=== PATIENT | male | born 1935 | race Caucasian/White ===

== ENCOUNTER 2016-05-12 14:40 | Outpatient (RCR) | payer MEDICARE, OTHER ==
[2016-05-12 14:54] LABS: BASOPHILS % (AUTO) 0 % (0-2); EOSINOPHILS # (AUTO) 0.1 10^3uL; EOSINOPHILS % (AUTO) 1 % (0-4); LYMPHOCYTES # (AUTO) 1.2 X10^3; MEAN CORPUSCULAR HEMOGLOBIN 25.3 PG (26.0-34.0); MEAN CORPUSCULAR HGB CONC 30.4 g/dL (31.0-37.0); MEAN CORPUSCULAR VOLUME 83 FL (80-100); MEAN PLATELET VOLUME 10.1 FL (6.0-9.5); MONOCYTES # (AUTO) 0.9 X10^3; MONOCYTES % (AUTO) 12 % (3-11); NEUTROPHILS # (AUTO) 4.9 X10^3; NEUTROPHILS % (AUTO) 69 % (51-67); PLATELET COUNT 223 10^3uL (150-450); WHITE BLOOD COUNT 7.04 10^3uL (4.0-11.0)
[2016-05-19 12:15] LABS: MEAN CORPUSCULAR VOLUME 83 FL (80-100); MEAN PLATELET VOLUME 10.2 FL (6.0-9.5); PLATELET COUNT 232 10^3uL (150-450); WHITE BLOOD COUNT 6.28 10^3uL (4.0-11.0)
[2016-05-19 12:22] LABS: MEAN CORPUSCULAR HEMOGLOBIN 25.6 PG (26.0-34.0)
[2016-05-19 12:23] LABS: ANISOCYTOSIS SLIGHT; BAND NEUTROPHILS % 1 % (0-6); EOSINOPHILS % 0 % (0-4); LYMPHOCYTES # 0.9 #; MONOCYTES # 1.3 #; MONOCYTES % 21 % (3-11); RBC MORPH SEE REFERENCE (NORMAL); SEGMENTED NEUTROPHILS % 63 % (51-67); TOTAL CELLS COUNTED 100
[2016-06-02 11:42] LABS: MEAN CORPUSCULAR VOLUME 83 FL (80-100); PLATELET COUNT 177 10^3uL (150-450); WHITE BLOOD COUNT 4.55 10^3uL (4.0-11.0)
[2016-06-02 11:56] LABS: MEAN CORPUSCULAR HEMOGLOBIN 25.1 PG (26.0-34.0); MEAN CORPUSCULAR HGB CONC 30.4 g/dL (31.0-37.0)
[2016-06-02 12:12] LABS: ANISOCYTOSIS MODERATE; BAND NEUTROPHILS % 0 % (0-6); EOSINOPHILS % 1 % (0-4); HYPOCHROMASIA SLIGHT; MONOCYTES # 0.9 #; MONOCYTES % 22 % (3-11); POIKILOCYTOSIS SLIGHT; RBC MORPH SEE REFERENCE (NORMAL); SEGMENTED NEUTROPHILS % 54 % (51-67); TOTAL CELLS COUNTED 100
[2016-06-19 13:03] LABS: MEAN CORPUSCULAR VOLUME 83 FL (80-100); MEAN PLATELET VOLUME 10.5 FL (6.0-9.5); PLATELET COUNT 179 10^3uL (150-450); WHITE BLOOD COUNT 4.06 10^3uL (4.0-11.0)
[2016-06-19 13:29] LABS: BAND NEUTROPHILS % 0 % (0-6); EOSINOPHILS % 1 % (0-4); LYMPHOCYTES # 1.3 #; MEAN CORPUSCULAR HEMOGLOBIN 24.9 PG (26.0-34.0); MEAN CORPUSCULAR HGB CONC 30.1 g/dL (31.0-37.0); MONOCYTES # 0.8 #; MONOCYTES % 20 % (3-11); SEGMENTED NEUTROPHILS % 47 % (51-67); TOTAL CELLS COUNTED 100
[2016-06-19 13:30] LABS: ANISOCYTOSIS SLIGHT; RBC MORPH SEE REFERENCE (NORMAL)
[2016-06-25 14:11] LABS: MEAN CORPUSCULAR VOLUME 82 FL (80-100); MEAN PLATELET VOLUME 10.8 FL (6.0-9.5); PLATELET COUNT 161 10^3uL (150-450); WHITE BLOOD COUNT 5.01 10^3uL (4.0-11.0)
[2016-06-25 14:17] LABS: MEAN CORPUSCULAR HEMOGLOBIN 25.1 PG (26.0-34.0); MEAN CORPUSCULAR HGB CONC 30.4 g/dL (31.0-37.0)
[2016-06-25 15:16] LABS: BAND NEUTROPHILS % 0 % (0-6); EOSINOPHILS % 0 % (0-4); LYMPHOCYTES # 0.7 #; MONOCYTES # 0.4 #; MONOCYTES % 8 % (3-11); RBC MORPH NORMAL (NORMAL); SEGMENTED NEUTROPHILS % 78 % (51-67); TOTAL CELLS COUNTED 100
[2016-07-08 11:45] LABS: MEAN CORPUSCULAR VOLUME 81 FL (80-100); MEAN PLATELET VOLUME 10.9 FL (6.0-9.5); PLATELET COUNT 159 10^3uL (150-450); WHITE BLOOD COUNT 5.04 10^3uL (4.0-11.0)
[2016-07-08 11:48] LABS: MEAN CORPUSCULAR HEMOGLOBIN 24.9 PG (26.0-34.0); MEAN CORPUSCULAR HGB CONC 30.6 g/dL (31.0-37.0)
[2016-07-08 12:10] LABS: BAND NEUTROPHILS % 2 % (0-6); EOSINOPHILS % 0 % (0-4); HYPOCHROMASIA SLIGHT; LYMPHOCYTES # 0.7 #; MONOCYTES # 0.6 #; MONOCYTES % 12 % (3-11); POLYCHROMASIA SLIGHT; RBC MORPH SEE REFERENCE (NORMAL); SEGMENTED NEUTROPHILS % 72 % (51-67); TOTAL CELLS COUNTED 100
[2016-07-08 12:11] LABS: POIKILOCYTOSIS SLIGHT
[2016-07-18 10:02] LABS: BASOPHILS % (AUTO) 0 % (0-2); EOSINOPHILS % (AUTO) 0 % (0-4); MEAN CORPUSCULAR VOLUME 80 FL (80-100); MEAN PLATELET VOLUME 11.4 FL (6.0-9.5); MONOCYTES # (AUTO) 0.4 X10^3; MONOCYTES % (AUTO) 7 % (3-11); NEUTROPHILS # (AUTO) 4.7 X10^3; NEUTROPHILS % (AUTO) 77 % (51-67); PLATELET COUNT 201 10^3uL (150-450); WHITE BLOOD COUNT 6.14 10^3uL (4.0-11.0)
[2016-07-18 10:05] LABS: MEAN CORPUSCULAR HEMOGLOBIN 25.3 PG (26.0-34.0); MEAN CORPUSCULAR HGB CONC 31.5 g/dL (31.0-37.0)
[2016-07-23 10:52] LABS: MEAN CORPUSCULAR VOLUME 82 FL (80-100); MEAN PLATELET VOLUME 10.8 FL (6.0-9.5); PLATELET COUNT 278 10^3uL (150-450); WHITE BLOOD COUNT 7.31 10^3uL (4.0-11.0)
[2016-07-23 11:33] LABS: MEAN CORPUSCULAR HEMOGLOBIN 25.4 PG (26.0-34.0)
[2016-07-23 11:34] LABS: BAND NEUTROPHILS % 3 % (0-6); EOSINOPHILS % 0 % (0-4); LYMPHOCYTES # 0.3 #; MONOCYTES # 0.2 #; MONOCYTES % 3 % (3-11); SEGMENTED NEUTROPHILS % 90 % (51-67); TOTAL CELLS COUNTED 100
[2016-07-23 11:35] LABS: HYPOCHROMASIA SLIGHT; POIKILOCYTOSIS SLIGHT; POLYCHROMASIA SLIGHT; RBC MORPH SEE REFERENCE (NORMAL)
[2016-07-24 14:22] LABS: ANION GAP 15.7 MEQ/L (3-15)
== END 2016-08-10 | disposition home or self-care (01) ==
LOC: LAB 14:40
PROVIDERS: ATTEND Internal Medicine Cardiovascular Disease
DX: Z51.81 Encounter for therapeutic drug level monitoring (principal); Z79.01 Long term (current) use of anticoagulants; K92.2 Gastrointestinal hemorrhage, unspecified; I48.2 Chronic atrial fibrillation; I50.42 Chronic combined systolic (congestive) and diastolic (congestive) heart failure; I50.22 Chronic systolic (congestive) heart failure; I25.5 Ischemic cardiomyopathy; Z95.811 Presence of heart assist device
CPT/HCPCS: 36415; 80048; 85025; 85610

== ENCOUNTER → 2016-06-13 | Outpatient (CLI) | payer MEDICARE, OTHER ==
[~2016-06-13] MED LIST: ASP81TEC PO; ENAL10TA75 PO; LEVO50TA PO; ROSU20TA PO; WARF5TAB PO
--- NOTE | 2016-06-13 17:58 | Diagnostic Imaging Report ---
PROCEDURE: US Bilateral lower extremity arterial. TECHNIQUE: Multiple real-time grayscale images are obtained through both lower extremity arterial systems with color Doppler imaging and color Doppler spectral analysis. INDICATION: Peripheral vascular disease. FINDINGS: There is monophasic flow at the common femoral artery bilaterally consistent with bilateral iliac arteries hemodynamic stenosis. There is moderate atherosclerotic disease throughout the superficial femoral and popliteal arteries though no hemodynamic stenosis noted along this region. There is moderate trifurcation disease with hemodynamic stenosis noted in the posterior tibial artery bilaterally. IMPRESSION: 1. Significant bilateral dampening of flow in the common femoral arteries consistent with bilateral iliac artery hemodynamic changes. 2. 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 Dictated by: Dictated on workstation # [id number]
== END ==
LOC: RAD 15:04
PROVIDERS: ATTEND Family Medicine
DX: I70.201 Unspecified atherosclerosis of native arteries of extremities, right leg (principal); I70.202 Unspecified atherosclerosis of native arteries of extremities, left leg
CPT/HCPCS: 93925

== ENCOUNTER → 2016-07-08 | Outpatient (CLI) | payer MEDICARE, OTHER | LOC: RAD 11:33 | PROVIDERS: ATTEND Family Medicine | DX: I82.432 Acute embolism and thrombosis of left popliteal vein (principal) ==

== ENCOUNTER 2016-07-28 12:23 | Outpatient (RCR) | payer MEDICARE, OTHER ==
[2016-07-28 12:35] LABS: MEAN PLATELET VOLUME 10.9 FL (6.0-9.5); WHITE BLOOD COUNT 4.39 10^3uL (4.0-11.0)
[2016-07-28 12:37] LABS: MEAN CORPUSCULAR HEMOGLOBIN 25.4 PG (26.0-34.0); MEAN CORPUSCULAR HGB CONC 30.3 g/dL (31.0-37.0)
[2016-07-28 19:48] LABS: IRON 21 ug/dL (65-175)
[2016-07-28 20:13] LABS: VITAMIN B 12 930 pg/mL (213-816)
[2016-07-28 20:57] LABS: TRANSFERRIN 307 mg/dL (180-329)
[2016-08-04 12:14] LABS: MEAN CORPUSCULAR HEMOGLOBIN 25.7 PG (26.0-34.0); MEAN CORPUSCULAR HGB CONC 30.7 g/dL (31.0-37.0); MEAN PLATELET VOLUME 10.8 FL (6.0-9.5); WHITE BLOOD COUNT 5.24 10^3uL (4.0-11.0)
[2016-08-11 12:15] LABS: MEAN PLATELET VOLUME 10.9 FL (6.0-9.5); WHITE BLOOD COUNT 6.08 10^3uL (4.0-11.0)
[2016-08-11 12:25] LABS: MEAN CORPUSCULAR HEMOGLOBIN 25.3 PG (26.0-34.0); MEAN CORPUSCULAR HGB CONC 29.8 g/dL (31.0-37.0)
[2016-08-18 10:47] LABS: MEAN PLATELET VOLUME 10.6 FL (6.0-9.5); WHITE BLOOD COUNT 6.23 10^3uL (4.0-11.0)
[2016-08-18 10:48] LABS: MEAN CORPUSCULAR HEMOGLOBIN 24.9 PG (26.0-34.0); MEAN CORPUSCULAR HGB CONC 29.7 g/dL (31.0-37.0)
[2016-08-27 12:23] LABS: MEAN PLATELET VOLUME 9.6 FL (6.0-9.5); WHITE BLOOD COUNT 5.2 10^3uL (4.0-11.0)
[2016-09-01 11:39] LABS: MEAN PLATELET VOLUME 10.6 FL (6.0-9.5); WHITE BLOOD COUNT 7.51 10^3uL (4.0-11.0)
[2016-09-01 11:42] LABS: MEAN CORPUSCULAR HEMOGLOBIN 24.6 PG (26.0-34.0); MEAN CORPUSCULAR HGB CONC 29.9 g/dL (31.0-37.0)
[2016-09-08 13:34] LABS: MEAN CORPUSCULAR VOLUME 83 FL (80-100); MEAN PLATELET VOLUME 10.2 FL (6.0-9.5); PLATELET COUNT 183 10^3uL (150-450); WHITE BLOOD COUNT 5.91 10^3uL (4.0-11.0)
[2016-09-08 13:47] LABS: MEAN CORPUSCULAR HEMOGLOBIN 24.2 PG (26.0-34.0); MEAN CORPUSCULAR HGB CONC 29.2 g/dL (31.0-37.0)
[2016-09-08 13:50] LABS: BAND NEUTROPHILS % 1 % (0-6); LYMPHOCYTES # 1.3 #; MONOCYTES # 0.5 #; MONOCYTES % 10 % (3-11); SEGMENTED NEUTROPHILS % 66 % (51-67)
[2016-09-08 13:51] LABS: ANISOCYTOSIS SLIGHT; EOSINOPHILS % 0 % (0-4); HYPOCHROMASIA SLIGHT; RBC MORPH SEE REFERENCE (NORMAL); TOTAL CELLS COUNTED 100
[2016-09-15 11:49] LABS: MEAN PLATELET VOLUME 10.3 FL (6.0-9.5); WHITE BLOOD COUNT 5.04 10^3uL (4.0-11.0)
[2016-09-15 11:50] LABS: MEAN CORPUSCULAR HEMOGLOBIN 24.1 PG (26.0-34.0); MEAN CORPUSCULAR HGB CONC 29.5 g/dL (31.0-37.0)
[2016-09-22 11:27] LABS: MEAN PLATELET VOLUME 10.1 FL (6.0-9.5); WHITE BLOOD COUNT 5.52 10^3uL (4.0-11.0)
[2016-09-22 11:28] LABS: MEAN CORPUSCULAR HEMOGLOBIN 23.8 PG (26.0-34.0); MEAN CORPUSCULAR HGB CONC 29.2 g/dL (31.0-37.0)
[2016-09-30 12:56] LABS: MEAN PLATELET VOLUME 10.4 FL (6.0-9.5); WHITE BLOOD COUNT 4.15 10^3uL (4.0-11.0)
[2016-09-30 12:57] LABS: MEAN CORPUSCULAR HEMOGLOBIN 23.6 PG (26.0-34.0); MEAN CORPUSCULAR HGB CONC 29.4 g/dL (31.0-37.0)
[2016-10-06 12:39] LABS: MEAN CORPUSCULAR HEMOGLOBIN 23.9 PG (26.0-34.0); MEAN CORPUSCULAR HGB CONC 29.6 g/dL (31.0-37.0); MEAN PLATELET VOLUME 10.9 FL (6.0-9.5); WHITE BLOOD COUNT 5.62 10^3uL (4.0-11.0)
[2016-10-20 10:16] LABS: MEAN CORPUSCULAR HEMOGLOBIN 23.1 PG (26.0-34.0); MEAN CORPUSCULAR HGB CONC 29.2 g/dL (31.0-37.0); MEAN PLATELET VOLUME 10.8 FL (6.0-9.5); WHITE BLOOD COUNT 4.47 10^3uL (4.0-11.0)
== END 2016-10-26 | disposition home or self-care (01) ==
LOC: LAB 12:23
PROVIDERS: ATTEND Internal Medicine Medical Oncology
DX: D69.3 Immune thrombocytopenic purpura (principal); D64.9 Anemia, unspecified
CPT/HCPCS: 36415; 82607; 82728; 83540; 84466; 85025; 85027; 85045

== ENCOUNTER 2016-08-11 12:17 | Outpatient (RCR) | payer MEDICARE, OTHER | END 2016-10-29 19:18 | disposition home or self-care (01) | LOC: LAB 12:17 | PROVIDERS: ATTEND Internal Medicine Cardiovascular Disease | DX: K92.2 Gastrointestinal hemorrhage, unspecified (principal); Z79.01 Long term (current) use of anticoagulants | CPT/HCPCS: 36415; 85025; 85610 ==